=== PATIENT | male | born 1950 | race Caucasian/White ===

== ENCOUNTER 2023-07-18 15:05 | Observation (INO) | payer MEDICARE, OTHER ==
[~2023-07-18] VITALS: Ht 182.9 cm; Wt 152.0 kg
[2023-07-18 16:34] LABS: BASO # 0.1 10^3/uL (0.0-0.2); BASO % 0.7 % (0.0-1.0); EOS # 0.2 10^3/uL (0.0-0.5); HEMATOCRIT 48.5 % (42.0-52.0); HEMOGLOBIN 15.7 g/dl (13.5-17.5); LYMPH # 1.1 10^3/uL (1.5-5.0); MEAN CORPUSCULAR HGB CONC 32.4 g/dl (32.0-36.5); MONO # 0.6 10^3/uL (0.0-0.8); MONO % 5.1 % (2.0-8.0); NEUTROPHILS # 9.6 10^3/uL (1.5-8.5); NEUTROPHILS % 82.2 % (36.0-66.0); PLATELET COUNT, AUTOMATED 225 10^3/uL (150-450); WHITE BLOOD COUNT 11.7 10^3/uL (4.0-10.0)
[2023-07-18 16:52] LABS: CK-MB VALUE MASS 1.3 NG/ML (<3.6)
[2023-07-18 16:53] LABS: LIPASE 35 U/L (12-53)
[2023-07-18 16:55] LABS: ALBUMIN 3.4 G/DL (3.2-5.2); ALKALINE PHOSPHATASE 65 U/L (46-116); ALT/SGPT 29 U/L (7.0-40); AST/SGOT 12 U/L (<34); BILIRUBIN,DIRECT 0.3 MG/DL (<0.4); BILIRUBIN,TOTAL 0.8 MG/DL (0.3-1.2); BLOOD UREA NITROGEN 20 MG/DL (9-23); CALCIUM LEVEL 9.1 MG/DL (8.3-10.6); CARBON DIOXIDE LEVEL 28 MMOL/L (20-31); CHLORIDE LEVEL 106 MMOL/L (98-107); GLOMERULAR FILTRATION RATE > 60.0 (>42); GLUCOSE, FASTING 102 MG/DL (74-106); POTASSIUM SERUM 4.5 MMOL/L (3.5-5.1); SODIUM LEVEL 144 MMOL/L (136-145); TOTAL PROTEIN 6.8 G/DL (5.7-8.2)
[2023-07-18 16:56] LABS: FREE T4 1.18 NG/DL (0.89-1.76); THYROID STIMULATING HORMONE 1.216 uIU/ML (0.55-4.78)
[2023-07-18 16:58] LABS: CPK CREATINE PHOSPHOKINASE 93 U/L (46-171); MB/CK RELATIVE INDEX 1.39 (< OR =4)
[2023-07-18 17:00] LABS: RSV AMPLIFICATION NEGATIVE (NEGATIVE)
[2023-07-18 17:20] LABS: INR 1.19; PARTIAL THROMBOPLASTIN TIME 37.5 SECONDS (24.8-34.2); PROTHROMBIN TIME 14.8 SECONDS (12.5-14.5)
[2023-07-18] MEDS ORDERED: METOPROLOL TART 25 MG TABLET PO ONE (17:55)
[2023-07-18] MEDS ORDERED: ACETAMINOPHEN TAB 650MG DOSE (2X325MG) PO PRN (17:55)
[2023-07-18] MEDS ORDERED: MOM 30ML SUSPENSION UDC PO PRN (17:55)
[2023-07-18 18:03] LABS: CK-MB VALUE MASS 1.4 NG/ML (<3.6)
[2023-07-18 18:04] LABS: MB/CK RELATIVE INDEX 1.5 (< OR =4)
[2023-07-18] MEDS ORDERED: LORazepam 2 MG TAB PO PRN (18:15)
[2023-07-18 18:27] LABS: CHOLESTEROL RISK RATIO 3.11 (<5); HDL CHOLESTEROL 47.9 MG/DL (>40); LDL CHOLESTEROL 74.3 MG/DL (<100); NON-HDL-C 101.1 MG/DL
[2023-07-18] MEDS ORDERED: MED REC IN PROGRESS XX SCH (18:35)
[2023-07-18] MEDS: THIAMINE 100 MG TAB PO SCH (18:41)
[2023-07-18] MEDS ORDERED: ACE65ERTAB PO (19:14)
[2023-07-18] MEDS ORDERED: TRIA37.577 PO (19:14)
[2023-07-18] MEDS ORDERED: ATEN25TA PO (19:14)
[2023-07-18] MEDS ORDERED: SILD100T7 PO (19:14)
[2023-07-18] MEDS ORDERED: BETA0.0543 TOP (19:14)
[2023-07-18] MEDS ORDERED: PANT40TA29 PO (19:14)
[2023-07-18] MEDS ORDERED: ALLO300T2 PO (19:14)
[2023-07-18] MEDS ORDERED: LISI40TA4 PO (19:14)
[2023-07-18] MEDS ORDERED: PRAV40TA2 PO (19:14)
[2023-07-18] MEDS ORDERED: NAPR220C23 PO (19:15)
[2023-07-18] MEDS ORDERED: CENT1TAB PO (19:18)
[2023-07-18] MEDS ORDERED: HOME MED LIST COMPLETE! XX SCH (19:25)
[2023-07-18] MEDS: DOCUSATE SODIUM 100MG CAPSULE PO SCH (19:41)
[2023-07-18 20:08] LABS: HEMOGLOBIN A1c 5.4 % (4.0-6.0)
[2023-07-18 23:18] VITALS: BP 108/58; TEMP 97.9; O2SAT 95
[2023-07-18] MEDS ORDERED: dilTIAZem 25MG/5ML VIAL IV STA (23:49)
[2023-07-19] VITALS: BP 102/70; TEMP 98; O2SAT 96
[2023-07-19] MEDS ORDERED: DIGOXIN INJ 0.5 MG/2 ML AMP IV STA (03:38)
[2023-07-19] MEDS ORDERED: METOPROLOL TART 25 MG TABLET PO ONE (03:40)
[2023-07-19 04:00] VITALS: BP 116/61; TEMP 98; O2SAT 95
[2023-07-19 06:35] LABS: BLOOD UREA NITROGEN 21 MG/DL (9-23); CALCIUM LEVEL 9.3 MG/DL (8.3-10.6); CARBON DIOXIDE LEVEL 29 MMOL/L (20-31); CHLORIDE LEVEL 105 MMOL/L (98-107); CREATININE FOR GFR 1.13 MG/DL (0.70-1.30); GLOMERULAR FILTRATION RATE > 60.0 (>42); GLUCOSE, FASTING 107 MG/DL (74-106); MAGNESIUM LEVEL 1.5 MG/DL (1.8-2.4); POTASSIUM SERUM 5.3 MMOL/L (3.5-5.1); SODIUM LEVEL 144 MMOL/L (136-145)
[2023-07-19] MEDS ORDERED: MAGNESIUM OXIDE 400MG TAB (MAG-OX) PO ONE (06:55)
[2023-07-19 08:26] VITALS: BP 125/68
[2023-07-19] MEDS: THIAMINE 100 MG TAB PO SCH (08:26)
[2023-07-19] MEDS: DOCUSATE SODIUM 100MG CAPSULE PO SCH (08:27)
[2023-07-19] MEDS: MAG SULF 1GM/100ML (MAG RUN) 1 GM in IV 1 EA IV SCH ×2 (08:27→10:12)
[2023-07-19] MEDS ORDERED: FOLIC ACID 1MG TAB PO SCH (09:00)
[2023-07-19] MEDS ORDERED: PRAVASTATIN 20 MG TAB PO SCH (09:00)
[2023-07-19] MEDS ORDERED: MULTIVITAMINS/MINERALS THERAP 1 TAB PO SCH (09:00)
[2023-07-19] MEDS ORDERED: METOPROLOL TART 25 MG TABLET PO SCH (09:00)
[2023-07-19] MEDS ORDERED: APIXABAN 5 MG TAB (ELIQUIS) PO SCH (09:00)
[2023-07-19] MEDS ORDERED: allopurinoL 300 MG TAB PO SCH (09:00)
[2023-07-19] MEDS ORDERED: METOPROLOL TART 50 MG TAB PO SCH (09:00)
[2023-07-19] MEDS ORDERED: PANTOPRAZOLE 40MG TAB (PROTONIX) PO SCH (09:00)
[2023-07-19] MEDS ORDERED: LOPR1TAB6 PO (10:35)
[2023-07-19] MEDS ORDERED: ELIQ5TAB PO (10:35)
[2023-07-19] MEDS ORDERED: PATIROMER SORBITEX CALCIUM 8.4 GM POWDER PACKET (VELTASSA) PO ONE (12:00)
== END 2023-07-19 12:15 | disposition home or self-care (01) ==
LOC: EDBD 15:05 → M ED 15:05 → M ED INP 15:06 → M ICU 23:05
PROVIDERS: ADMIT Student in an Organized Health Care Education/Training Program; ATTEND Student in an Organized Health Care Education/Training Program
DX: I48.91 Unspecified atrial fibrillation (principal); F10.90 Alcohol use, unspecified, uncomplicated; E87.5 Hyperkalemia; J94.8 Other specified pleural conditions; M51.24 Other intervertebral disc displacement, thoracic region; M85.88 Other specified disorders of bone density and structure, other site; K76.0 Fatty (change of) liver, not elsewhere classified; K80.20 Calculus of gallbladder without cholecystitis without obstruction; N28.1 Cyst of kidney, acquired; I10 Essential (primary) hypertension; M10.9 Gout, unspecified; E66.9 Obesity, unspecified; E78.5 Hyperlipidemia, unspecified; J30.1 Allergic rhinitis due to pollen; Z79.899 Other long term (current) drug therapy; Z79.01 Long term (current) use of anticoagulants; Z79.1 Long term (current) use of non-steroidal anti-inflammatories (NSAID); Z80.1 Family history of malignant neoplasm of trachea, bronchus and lung; Z82.49 Family history of ischemic heart disease and other diseases of the circulatory system
CPT/HCPCS: 36415; 71045; 71250; 80048; 80061; 80076; 82550; 82553; 83036; 83690; 83735; 83880; 84439; 84443; 84484; 85025; 85610; 85730; 87631; 93005; 93041; 93306; 94760; 96374; 96375; 96376; 99285; G0378; J1160; J3475